=== PATIENT | male | born 1995 | race Caucasian/White ===

== ENCOUNTER → 2016-06-05 | Outpatient (CLI) | payer BC ==
[~2016-06-05] MED LIST: ALBUTEROL0.09 MG/A1 IH; CEPHALEXIN500 M1 PO; INDERAL 20MG20 MG PO; INSULIN HUMA100 U/ML IJ; INSULIN LANTIS; LANTUS100 U/ML SQ; LORTAB 5/500 501 TAB PO; MULTIVITAMIN1 CTB PO; NAPROSYN500 MG PO; NORCO 325 MG-51 TAB PO; NOVOLOG 100U100 U/M1 SQ; NOVOLOG FLEX100 U/ML SQ; TOPAMAX 100MG100 M1 PO; TYLENOL #3 301 UDTAB PO; VICODIN 5/5001 UDTAB PO; [UNRECOGNIZED DRUG - OTHER]; [UNRECOGNIZED DRUG - OTHER] PO; [UNRECOGNIZED DRUG - REMARK]
== END ==
LOC: SUN.DIA 07:44
DX: E10.65 Type 1 diabetes mellitus with hyperglycemia (principal); Z68.21 Body mass index [BMI] 21.0-21.9, adult; Z71.3 Dietary counseling and surveillance; Z79.4 Long term (current) use of insulin
CPT/HCPCS: G0108

== ENCOUNTER → 2016-07-11 | Outpatient (CLI) | payer BC | LOC: SUN.DIA | DX: E10.65 Type 1 diabetes mellitus with hyperglycemia (principal); Z79.4 Long term (current) use of insulin; Z71.3 Dietary counseling and surveillance | CPT/HCPCS: G0108 ==

== ENCOUNTER → 2016-08-08 | Outpatient (CLI) | payer BC | LOC: SUN.DIA 14:17 | DX: E10.65 Type 1 diabetes mellitus with hyperglycemia (principal); Z79.4 Long term (current) use of insulin; Z68.20 Body mass index [BMI] 20.0-20.9, adult; Z71.3 Dietary counseling and surveillance | CPT/HCPCS: G0108 ==

== ENCOUNTER 2016-12-28 10:27 | Emergency (ER) | payer BC ==
[~2016-12-28] VITALS: Ht 177.8 cm; Wt 68.2 kg
[~2016-12-28 10:27] MED LIST changes: -MULTIVITAMIN1 CTB PO
[2016-12-28 10:33] VITALS: TEMP 98.7
[2016-12-28] MEDS ORDERED: MULTIVITAMIN1 CTB PO (11:14)
[2016-12-28 11:39] LABS: BASO % 0.4 % (0.0-2.0); EOS # 0.1 (0.0-0.7); GRAN # 4.1 (1.4-6.5); GRAN % 58.6 % (42.2-75.2); HEMOGLOBIN 14.5 g/dl (13.5-18.0); LYMPH # 2.2 (1.2-3.4); LYMPH % 31.2 % (20.0-51.0); MEAN CELL VOLUME 91 fl (80.0-100.0); MEAN CORPUSCULAR HEMOGLOBIN 31 pg (27.0-31.0); MEAN CORPUSCULAR HGB CONC 34 g/dl (33.0-37.0); MEAN PLATELET VOLUME 9.3 fl (7.4-10.4); MONO # 0.6 (0.1-0.6); MONO % 8.4 % (1.7-9.3); PLATELET COUNT 239 K/mm3 (130-400); RED BLOOD COUNT 4.72 M/mm3 (4.20-5.60); REDCELL DISTRIBUTION WIDTH-CV 12.2 % (11.5-14.5)
[2016-12-28 11:57] LABS: ALBUMIN 4.1 gm/dL (3.5-5.0); CALCIUM 9.1 mg/dL (8.4-10.2); CREATININE, serum 0.75 mg/dL (0.66-1.25); POTASSIUM 3.7 mmol/L (3.4-5.0); TOTAL PROTEIN 6.8 gm/dL (6.4-8.2)
[2016-12-28 13:22] VITALS: BP 109/79; PULSE 76
== END 2016-12-28 13:15 | disposition home or self-care (01) ==
LOC: COL.ER 10:27
PROVIDERS: Nurse Practitioner
DX: S82.491A Other fracture of shaft of right fibula, initial encounter for closed fracture (principal); J45.909 Unspecified asthma, uncomplicated; E10.9 Type 1 diabetes mellitus without complications; Z79.4 Long term (current) use of insulin; G40.909 Epilepsy, unspecified, not intractable, without status epilepticus; W55.29XA Other contact with cow, initial encounter; Y92.39 Other specified sports and athletic area as the place of occurrence of the external cause
CPT/HCPCS: J2405; J3010; J7030

== ENCOUNTER 2017-11-10 22:49 | Emergency (ER) | payer BC ==
[~2017-11-10 22:49] MED LIST changes: +MULTIVITAMIN1 CTB PO
[2017-11-10 22:53] VITALS: TEMP 98.8
[2017-11-10] MEDS ORDERED: NORCO 325 MG-51 TAB PO (23:55)
[2017-11-11 00:02] VITALS: BP 136/86; PULSE 95
== END 2017-11-11 00:05 | disposition home or self-care (01) ==
LOC: COL.ER 22:49
DX: S20.212A Contusion of left front wall of thorax, initial encounter (principal); Z79.4 Long term (current) use of insulin; W55.22XA Struck by cow, initial encounter

== ENCOUNTER 2017-11-13 06:40 | Emergency (ER) | payer BC ==
[~2017-11-13] VITALS: Ht 182.9 cm; Wt 70.5 kg
[2017-11-13 06:45] VITALS: BP 128/84; TEMP 98.3
[2017-11-13 07:24] VITALS: PULSE 68
== END 2017-11-13 07:14 | disposition home or self-care (01) ==
LOC: COL.ER 06:40
DX: S20.212A Contusion of left front wall of thorax, initial encounter (principal); E10.9 Type 1 diabetes mellitus without complications; G43.909 Migraine, unspecified, not intractable, without status migrainosus; J45.909 Unspecified asthma, uncomplicated; F17.220 Nicotine dependence, chewing tobacco, uncomplicated; Z90.89 Acquired absence of other organs; Z79.4 Long term (current) use of insulin; W55.22XA Struck by cow, initial encounter

== ENCOUNTER 2021-03-15 22:46 | Emergency (ER) | payer BC ==
[~2021-03-15] VITALS: Ht 182.9 cm; Wt 70.5 kg
[2021-03-15 22:53] VITALS: TEMP 98.1
[2021-03-16 00:15] VITALS: BP 128/71; PULSE 68
== END 2021-03-16 00:05 | disposition home or self-care (01) ==
LOC: COL.ER 22:46
DX: H16.133 Photokeratitis, bilateral (principal); E11.9 Type 2 diabetes mellitus without complications; Z79.4 Long term (current) use of insulin; W89.0XXA Exposure to welding light (arc), initial encounter

== ENCOUNTER 2023-08-28 09:39 | Emergency (ER) | payer SELFPAY ==
[~2023-08-28] VITALS: Ht 182.9 cm; Wt 70.5 kg
[2023-08-28] MEDS ORDERED: LR 1,000 ML IV ONE ×2 (10:00→12:00)
[2023-08-28 10:13] LABS: BASO % 0.6 % (0.0-2.0); EOS # 0.2 K/mm3 (0.0-0.7); EOS % 3.5 % (0.0-4.0); GRAN # 3.6 K/mm3 (1.4-6.5); GRAN % 55.1 % (42.2-75.2); LYMPH # 2.1 K/mm3 (1.2-3.4); LYMPH % 31.9 % (20.0-51.0); MEAN CELL VOLUME 87 fl (80.0-100.0); MEAN CORPUSCULAR HGB CONC 34 g/dl (33.0-37.0); MEAN PLATELET VOLUME 9.4 fl (7.4-10.4); MONO # 0.6 K/mm3 (0.1-0.6); MONO % 8.7 % (1.7-9.3); PLATELET COUNT 252 K/mm3 (130-400); RED BLOOD COUNT 6.11 M/mm3 (4.20-5.60); REDCELL DISTRIBUTION WIDTH-CV 11.9 % (11.5-14.5)
[2023-08-28 10:20] LABS: HEMATOCRIT 53.3 % (42.0-52.0); HEMOGLOBIN 18.3 g/dl (13.5-18.0); MEAN CORPUSCULAR HEMOGLOBIN 30 pg (27-31)
[2023-08-28 10:34] LABS: COLLECTION METHOD CLEAN CATCH
[2023-08-28 10:35] LABS: ALBUMIN 4.2 g/dL (3.5-5.0); BILIRUBIN,TOTAL 0.3 mg/dL (0.2-1.2); CALCIUM 9.4 mg/dL (8.4-10.2); CREATININE, serum 1.07 mg/dL (0.72-1.25); POTASSIUM 3.6 mEq/L (3.5-4.5); TOTAL PROTEIN 7.4 g/dl (6.2-8.1)
[2023-08-28 10:44] LABS: PH 5.5 (5.0-8.5); URINE APPEARANCE CLEAR (CLEAR/HAZY); URINE BLOOD NEGATIVE (NEGATIVE); URINE COLOR YELLOW (YELLOW); URINE GLUCOSE 3+ (NEGATIVE); URINE KETONE 3+ (NEGATIVE); URINE NITRATE NEGATIVE (NEGATIVE); URINE PROTEIN(semi-quant) 1+ (NEGATIVE); URINE UROBILINOGEN 0.2 E.U/dL (0.2-1.0)
[2023-08-28] MEDS ORDERED: Insulin Regular Human (NovoLIN R/HumuLIN R) IV ONE (12:00)
[2023-08-28 13:46] VITALS: BP 128/82; PULSE 86; TEMP 98.1
== END 2023-08-28 13:50 | disposition home or self-care (01) ==
LOC: COL.ER 09:39
PROVIDERS: Emergency Medicine
DX: E11.65 Type 2 diabetes mellitus with hyperglycemia (principal); R82.4 Acetonuria; F17.220 Nicotine dependence, chewing tobacco, uncomplicated; Z79.4 Long term (current) use of insulin
CPT/HCPCS: J1815; J7120

== ENCOUNTER 2024-03-25 22:04 | Inpatient (IN) | payer OTHER ==
[~2024-03-25] VITALS: Ht 182.9 cm; Wt 62.7 kg
[~2024-03-25 22:04] MED LIST changes: -LANTUS100 U/ML SQ; +TRESIBA FL100 UNIT/1 SQ
[2024-03-25] MEDS ORDERED: LR 1,000 ML IV ONE ×2 (23:00→23:30)
[2024-03-25 23:14] LABS: COLLECTION METHOD CLEAN CATCH
[2024-03-25] MEDS ORDERED: Ondansetron 4 MG/2 ML VIAL IV ONE (23:15)
[2024-03-25 23:18] LABS: BASO # 0.1 K/mm3 (0.0-0.2); BASO % 0.8 % (0.0-2.0); EOS % 0.4 % (0.0-4.0); GRAN % 76.2 % (42.2-75.2); LYMPH # 1.3 K/mm3 (1.2-3.4); LYMPH % 16.6 % (20.0-51.0); MEAN CELL VOLUME 90 fl (80.0-100.0); MEAN CORPUSCULAR HGB CONC 35 g/dl (33.0-37.0); MEAN PLATELET VOLUME 9.8 fl (7.4-10.4); MONO # 0.4 K/mm3 (0.1-0.6); MONO % 4.7 % (1.7-9.3); PLATELET COUNT 300 K/mm3 (130-400); REDCELL DISTRIBUTION WIDTH-CV 13.1 % (11.5-14.5)
[2024-03-25 23:22] LABS: HEMATOCRIT 53.7 % (42.0-52.0); HEMOGLOBIN 18.5 g/dl (13.5-18.0); MEAN CORPUSCULAR HEMOGLOBIN 31 pg (27-31)
[2024-03-25 23:26] LABS: URINE APPEARANCE CLEAR (CLEAR/HAZY); URINE BLOOD TRACE (NEGATIVE); URINE COLOR YELLOW (YELLOW); URINE GLUCOSE 3+ (NEGATIVE); URINE KETONE 4+ (NEGATIVE); URINE NITRATE NEGATIVE (NEGATIVE); URINE PROTEIN(semi-quant) 2+ (NEGATIVE); URINE UROBILINOGEN 0.2 E.U/dL (0.2-1.0)
[2024-03-25 23:35] LABS: ALANINE AMINOTRANSFERASE 10 U/L (0-55); AST,SGOT 9 U/L (5-34); BILIRUBIN,TOTAL 0.4 mg/dL (0.2-1.2); BLOOD UREA NITROGEN 13 mg/dL (9-21); CALCIUM 9.3 mg/dL (8.4-10.2); CHLORIDE 101 mEq/L (98-107); CREATININE, serum 1.62 mg/dL (0.72-1.25); GLUCOSE 369 mg/dL (70-99); POTASSIUM 3.9 mEq/L (3.5-4.5); SODIUM 130 mEq/L (136-145); TOTAL PROTEIN 7.3 g/dl (6.2-8.1)
[2024-03-25 23:41] LABS: LIPASE 7 U/L (8-78)
[2024-03-25] MEDS ORDERED: Insulin Human Regular/NS 100 ML IV ONE (23:45)
[2024-03-25 23:47] LABS: ALKALINE PHOSPHATASE 145 U/L (40-150)
[2024-03-25 23:52] LABS: SQUAMOUS EPITHELIAL NONE SEEN /hpf (0-10); URINE BACTERIA RARE /hpf (NONE SEEN); URINE RBC NONE SEEN /hpf (0-2); URINE WBC None Seen /hpf (0-2)
[2024-03-26] VITALS (750 sets, daily range): BP systolic 104–140; BP diastolic 72–100; PULSE 91–99; TEMP 97.8–98.4; O2SAT 95–100
[2024-03-26] MEDS ORDERED: Sodium Bicarbonate/Water,Steri 1,150 ML IV SCH (00:45)
[2024-03-26] MEDS ORDERED: Ondansetron 4 MG/2 ML VIAL IV PRN (01:15)
[2024-03-26] MEDS ORDERED: Acetaminophen 325 MG TAB PO PRN (01:15)
[2024-03-26 02:12] LABS: CREATININE, serum 1.16 mg/dL (0.72-1.25); POTASSIUM 3.7 mEq/L (3.5-4.5)
[2024-03-26] MEDS ORDERED: D5NS & 20 mEq KCl 1,000 ML IV SCH (03:15)
[2024-03-26 06:14] LABS: CALCIUM 7.8 mg/dL (8.4-10.2); CREATININE, serum 1.1 mg/dL (0.72-1.25); POTASSIUM 3.2 mEq/L (3.5-4.5)
[2024-03-26] MEDS ORDERED: Potassium Chloride 100 ML IV SCH ×2 (06:30→23:15)
[2024-03-26] MEDS ORDERED: Dextrose (Glucose) 15 GM (4 x 3.75 GM) Chewable TABLET PACK PO PRN (08:00)
[2024-03-26] MEDS ORDERED: Glucagon 1 MG VIAL IM PRN (08:00)
[2024-03-26] MEDS ORDERED: Dextrose 50% Water 25 GM/50 ML SYRINGE IV PRN (08:00)
--- NOTE | 2024-03-26 09:30 | NUR ---
cafe worker met with pt to discuss intake information. He reports to live alone in [place] [facility]. He sees Dr. Byrd for PCP needs and obtains medications from [facility] with no difficulties. He verified his insurance as [employer]. Pt is independent with ADLS and uses no DME. He does not have a DPOA-HC and is agreeable to his mother, Kathrine [phone] being NOK. Pt presented with a flat affect and expressed no further needs. Discharge Plan: home
[2024-03-26] MEDS ORDERED: Insulin Human Regular/NS 100 ML IV SCH (09:45)
[2024-03-26 11:48] LABS: CALCIUM 8.5 mg/dL (8.4-10.2); CREATININE, serum 0.95 mg/dL (0.72-1.25); POTASSIUM 3.3 mEq/L (3.5-4.5)
--- NOTE | 2024-03-26 13:20 | NUR ---
0800: PATIENT IS AWAKE AND ALERT, BUT PRESENTS WITH FLAT AFFECT. STATES ALL HE WANTS TO DO IS EAT. RESPONDS APPROPRIATELY, BUT DOES SO QUIETLY. WHEN ASKED ABOUT THE SEVERAL SMALL GARNETT ON HIS LEGS HE STATES HE GOT THEM FROM WORK. SOME AREAS LOOK LIKE SMALL BRUISES, OTHERS SCRATCHES, OTHERS SCABS, AND THEY'RE CONSOLIDATED TO HIS SHINS. 1330: AFTER EATTING PATIENT IS MORE RESPONSIVE AND NOT SO QUIET. PATIENT HAS YET TO VOID ON MY SHIFT
[2024-03-26 14:35] LABS: CREATININE, serum 1.1 mg/dL (0.72-1.25); POTASSIUM 3.7 mEq/L (3.5-4.5)
--- NOTE | 2024-03-26 14:40 | NUR ---
Initial visit; Patient didn't appear to want to talk to a Tooth Grinder or anyone it seemed. Tooth Grinder introduced herself and he said nothing until Tooth Grinder asked if her would like a prayer and he said "no". Tooth Grinder wished him well and offered God's blessings.
[2024-03-26] MEDS ORDERED: Magnesium Sulfate 8% 50 ML IV ONE (16:15)
--- NOTE | 2024-03-26 17:39 | NUR ---
TORB FROM [facility] TO PASS ON TO SOLE LEVELER MACHINE. TWO HOURS AFTER PATIENT TAKES HS DOSE OF LANTUS, DISCONTINUE THE INSULIN DRIP AND PLACE AN ORDER IN FOR ACHS BLOOD SUGAR CHECKS ON A MODERATE SLIDING SCALE.
[2024-03-26 19:08] LABS: CALCIUM 7.8 mg/dL (8.4-10.2); CREATININE, serum 0.95 mg/dL (0.72-1.25); POTASSIUM 3.4 mEq/L (3.5-4.5)
[2024-03-26] MEDS ORDERED: Insulin Glargine-ygfn (Lantus) SQ SCH (21:00)
[2024-03-26 22:39] LABS: CALCIUM 7.3 mg/dL (8.4-10.2); CREATININE, serum 0.9 mg/dL (0.72-1.25); POTASSIUM 3.1 mEq/L (3.5-4.5)
[2024-03-27] VITALS: BP 120/80; PULSE 87; TEMP 97.9
[2024-03-27] MEDS ORDERED: Insulin Lispro (HumaLOG) SQ SCH
--- NOTE | 2024-03-27 02:00 | NUR ---
PT INSISTED ON HAVING R F/A IV REMOVED. REMOVED BY RN AT THIS TIME, TIP INTACT. GAUZE DRESSING APPLIED. POTASSIUM INFUSING TO L A/C PIV WITH NO ISSUES OR COMPLAINTS.
[2024-03-27 04:00] VITALS: PULSE 88; TEMP 98
[2024-03-27 05:59] LABS: BASO % 0.6 % (0.0-2.0); EOS # 0.1 K/mm3 (0.0-0.7); GRAN # 2.7 K/mm3 (1.4-6.5); GRAN % 54.3 % (42.2-75.2); LYMPH # 1.9 K/mm3 (1.2-3.4); LYMPH % 37.9 % (20.0-51.0); MEAN CORPUSCULAR HGB CONC 37 g/dl (33.0-37.0); MEAN PLATELET VOLUME 9.7 fl (7.4-10.4); MONO # 0.3 K/mm3 (0.1-0.6); MONO % 5.8 % (1.7-9.3); RED BLOOD COUNT 3.99 M/mm3 (4.20-5.60)
[2024-03-27 06:12] LABS: CALCIUM 7.6 mg/dL (8.4-10.2); CREATININE, serum 0.78 mg/dL (0.72-1.25); POTASSIUM 3.2 mEq/L (3.5-4.5)
[2024-03-27 06:17] LABS: HEMATOCRIT 33.5 % (42.0-52.0); HEMOGLOBIN 12.3 g/dl (13.5-18.0); MEAN CELL VOLUME 84 fl (80.0-100.0); MEAN CORPUSCULAR HEMOGLOBIN 31 pg (27-31); PLATELET COUNT 145 K/mm3 (130-400)
--- NOTE | 2024-03-27 07:00 | NUR ---
Report received from SHENG Chase; patient currently resting in bed with no meds or fluids running through patient's peripheral INT. Per report patient wanted to be discharged last night but ultimately stayed. Patient received 80 mEq of potassium overnight. Patient's blood glucose well controlled with patient now eating and drinking; patient's vital signs within normal limits this morning.
[2024-03-27 08:00] VITALS: BP 120/79; PULSE 93; TEMP 97.7
--- NOTE | 2024-03-27 08:00 | NUR ---
Patient dressed and removed all monitoring devices. Patient pleasant but unwilling to participate in assessment or take protonix and lovenox. Patient expects to be discharged home and is waiting for hospitalist.
--- NOTE | 2024-03-27 11:30 | NUR ---
Patient discharged home this morning; all discharge information was discussed and all patient's questions answered. Patient ambulatory, walked out with no assistance and left with all belongings.
== END 2024-03-27 11:21 | disposition home or self-care (01) | DRG 639 ==
LOC: COL.ER 22:04 → ICU 03-26 00:46
PROVIDERS: Emergency Medicine; Internal Medicine; Physician Assistant; ADMIT Internal Medicine
DX: E10.10 Type 1 diabetes mellitus with ketoacidosis without coma (principal); E83.42 Hypomagnesemia; E10.9 Type 1 diabetes mellitus without complications; Z79.4 Long term (current) use of insulin
CPT/HCPCS: J1650; J1815; J2405; J3475; J3480; J7120